=== PATIENT | female | born 1965 ===

== ENCOUNTER 2017-06-19 12:29 | Emergency (ER) | payer OTHER ==
[~2017-06-19] VITALS: Ht 160 cm; Wt 73.5 kg
== END 2017-06-19 17:53 | disposition home or self-care (01) ==
LOC: ER 12:29
DX: S92.322A Displaced fracture of second metatarsal bone, left foot, initial encounter for closed fracture (principal); W22.8XXA Striking against or struck by other objects, initial encounter; Y93.89 Activity, other specified; Y92.832 Beach as the place of occurrence of the external cause; Y99.8 Other external cause status